=== PATIENT | male | born 1985 | race African-American/Black ===

== ENCOUNTER 2022-12-30 04:36 | Day surgery (SDC) | payer OTHER ==
[2022-12-29 11:35] VITALS: BMI 31.7
[2022-12-30 11:49] VITALS: RESP 18
[2022-12-30 14:30] VITALS: BP 116/92; PULSE 83; TEMP 98
== END 2022-12-30 14:25 | disposition home or self-care (01) ==
LOC: JASU-ENDO 04:36
PROVIDERS: ATTEND Student in an Organized Health Care Education/Training Program
PROC: 0DB78ZX Excision of Stomach, Pylorus, Via Natural or Artificial Opening Endoscopic, Diagnostic (ICD-10-PCS; 2022-12-30)
PROC: 0DB68ZX Excision of Stomach, Via Natural or Artificial Opening Endoscopic, Diagnostic (ICD-10-PCS; principal; 2022-12-30 13:00)
DX: K29.50 Unspecified chronic gastritis without bleeding (principal); K20.90 Esophagitis, unspecified without bleeding; K44.9 Diaphragmatic hernia without obstruction or gangrene
CPT/HCPCS: 88305-TC; 88342-TC